=== PATIENT | male | born 1995 | race American Indian/Alaskan Native ===

== ENCOUNTER 2018-11-29 18:59 | Emergency (ER) | payer OTHER ==
--- NOTE | 2018-11-29 19:22 | Emergency Department Report ---
Blank Doc - Documentation Documentation: This is a 23-year-old male that presents with sore throat. This initial assessment diagnostic orders/clinical plan/treatment(s) is/are subject to change based on patient's health status, clinical progression and re- assessment by fellow clinical providers in the ED. Further treatment and workup at subsequent clinical providers discretion. Patient/guardians urged not to elope from ED s their condition may be serious if not clinically assessed and managed. Initial orders include: 1-Patient sent to [facility] for further evaluation and treatment 2- strep swab
[2018-11-29 19:26] VITALS: BP 149/96
[2018-11-30] MEDS ORDERED: BICILLIN L-A IM ONE (00:49)
--- NOTE | 2018-11-30 00:49 | Emergency Department Report ---
ED ENT HPI - General Chief complaint: Sore Throat Stated complaint: SORE THROAT Time Seen by Provider: 11/29/18 19:21 Source: patient Mode of arrival: Ambulatory Limitations: No Limitations - History of Present Illness Initial comments: 23-year-old -[place] male reports to the emergency room stating he has a sore throat for 2 weeks. Patient stated hurts to eat or swallow and states that he looks funny. Patient reports that he has white patches to the throat and voice is hoarse. Patient has not taken any pain medicines patient states that he doesn't think that's going to solve the problem. Patient questions could be an STD. MD complaint: sore throat -: week(s) (2) Severity scale (0 -10): 10 Quality: constant Consistency: constant Improves with: none Worsens with: swallowing, eating - Related Data Allergies Allergy/AdvReac Type Severity Reaction Status Date / Time metoclopramide [From Reglan] Allergy Unknown Verified 11/29/18 19:07 ED Dental HPI - General Chief complaint: Sore Throat Stated complaint: SORE THROAT Time Seen by Provider: 11/29/18 19:21 Source: patient Mode of arrival: Ambulatory Limitations: No Limitations - Related Data Allergies Allergy/AdvReac Type Severity Reaction Status Date / Time metoclopramide [From Reglan] Allergy Unknown Verified 11/29/18 19:07 ED Review of Systems ROS: Stated complaint: SORE THROAT Other details as noted in HPI Comment: All other systems reviewed and negative Constitutional: denies: chills, fever ENT: throat pain Gastrointestinal: denies: abdominal pain, nausea, diarrhea Neurological: denies: headache, weakness, paresthesias ED Past Medical Hx - Past Medical History Previous Medical History?: No - Surgical History Past Surgical History?: No - Social History Smoking Status: Current Every Day Smoker Substance Use Type: Alcohol ED Physical Exam - General Limitations: No Limitations General appearance: alert, in no apparent distress - Head Head exam: Present: atraumatic, normocephalic - Eye Eye exam: Present: EOMI - Expanded ENT Exam Expanded Throat exam: Positive: tonsillar erythema - Neck Neck exam: Present: full ROM. Absent: lymphadenopathy - Neurological Exam Neurological exam: Present: alert, oriented X3 - Psychiatric Psychiatric exam: Present: normal affect, normal mood ED Course Vital Signs 02/25/19 19:24 Temperature 98 F Pulse Rate 91 H Respiratory 18 Rate Blood Pressure 149/96 O2 Sat by Pulse 99 Oximetry ED Medical Decision Making - Medical Decision Making Patient has been evaluated by this provider in fast track. Patient is given a penicillin injection of 1.2 million units Patient can follow up with the primary care provider symptoms persist or gets worse. Also recommend patient to follow up at the health Department since he questions if this could be an STD. Critical care attestation.: If time is entered above; I have spent that time in minutes in the direct care of this critically ill patient, excluding procedure time. ED Disposition Clinical Impression: Pharyngitis Qualifiers: Pharyngitis/tonsillitis etiology: unspecified etiology Qualified Code(s): J02.9 - Acute pharyngitis, unspecified Disposition: DC- TO HOME OR SELFCARE Is pt being admited?: No Does the pt Need Aspirin: No Condition: Stable Instructions: Pharyngitis (ED) Additional Instructions: Please follow up at the health department to have STD screening. Increase her fluid intake. Referrals: EUN CASTRO MD [Primary Care Provider] - 3-5 Days Forms: Work/School Release Form(ED)
[2018-11-30] MEDS ORDERED: IBUPROFEN PO ONE ×2 (01:38→01:41)
== END 2018-11-30 01:40 | disposition home or self-care (01) ==
LOC: ED 18:59
DX: J02.9 Acute pharyngitis, unspecified (principal); F17.200 Nicotine dependence, unspecified, uncomplicated; Z88.8 Allergy status to other drugs, medicaments and biological substances
CPT/HCPCS: 87116; 87430; 96372; 99283; J0561

== ENCOUNTER 2021-04-28 10:39 | Emergency (ER) | payer SELFPAY ==
[2021-04-28] MEDS ORDERED: oxyCODONE /ACETAMINOPHEN 5-325MG TAB PO ONE (11:06)
[2021-04-28] MEDS ORDERED: KETOROLAC 10 MG TAB PO ONE (11:06)
--- NOTE | 2021-04-28 11:13 | Event Note ---
ED Screening Note Date of service: 04/28/21 Time: 11:12 ED Screening Note: Patient complains of fall onto left shoulder injury this morning Significant pain on exam This initial assessment/diagnostic orders/clinical plan/treatment(s) is/are subject to change based on patients health status, clinical progression and re- assessment by fellow clinical providers in the ED. Further treatment and workup at subsequent clinical providers discretion. Patient/guardian urged not to elope from the ED as their condition may be serious if not clinically assessed and managed. Initial orders include: Pain meds X-ray
--- NOTE | 2021-04-28 11:49 | XRay Report ---
Left shoulder 3 views INDICATION: Fall FINDINGS: No acute fracture dislocation. AC joint appears normal. Signer Name: Lionel Jackson MD Signed: 04/28/2021 11:44 AM Workstation Name: [id number]
[2021-04-28] MEDS ORDERED: KETOROLAC 60 MG/2 ML INJ IM ONE (14:04)
[2021-04-28] MEDS ORDERED: dexAMETHasone 4 MG/ML VIAL IM STA (14:15)
--- NOTE | 2021-04-28 14:15 | Emergency Department Report ---
ED General Adult HPI - General Chief complaint: Extremity Injury, Upper Stated complaint: LT SHOULD PAIN FELL Time Seen by Provider: 04/28/21 11:06 Source: patient Mode of arrival: Ambulatory Limitations: No Limitations - History of Present Illness Initial comments: 26-year-old -Citizen Of [place] male patient presents with complaints of left shoulder pain after fall injury this morning. He states while playing around with his brother, he fell directly onto the side of his shoulder. He rates pain as a 10/10 in severity and states he is unable to move it due to the pain. No prior history of shoulder dislocations per patient. He also denies any numbness/tingling in his arm or neck pain. -: Sudden Severity scale (0 -10): 10 Quality: aching, sharp, constant Consistency: constant - Related Data Previous Rx's Medication Instructions Recorded Last Taken Type Acetaminophen/Codeine [Tylenol 1 tab PO Q6H PRN #10 tab 04/28/21 Unknown Rx /Codeine # 3 tab] Naproxen 500 mg PO BID PRN #20 tablet 04/28/21 Unknown Rx methocarbamoL [Methocarbamol] 750 - 1,500 mg PO TID PRN #30 04/28/21 Unknown Rx tablet Allergies Allergy/AdvReac Type Severity Reaction Status Date / Time metoclopramide [From Reglan] Allergy Unknown Verified 04/28/21 11:04 ED Review of Systems ROS: Stated complaint: LT SHOULD PAIN FELL Other details as noted in HPI Respiratory: denies: shortness of breath Cardiovascular: denies: chest pain Musculoskeletal: joint swelling, arthralgia Neurological: denies: numbness, paresthesias ED Past Medical Hx - Past Medical History Previous Medical History?: No - Surgical History Past Surgical History?: No - Social History Smoking Status: Current Every Day Smoker Substance Use Type: Alcohol - Medications Home Medications: Home Medications Medication Instructions Recorded Confirmed Last Taken Type Acetaminophen/Codeine [Tylenol 1 tab PO Q6H PRN #10 tab 04/28/21 Unknown Rx /Codeine # 3 tab] Naproxen 500 mg PO BID PRN #20 tablet 04/28/21 Unknown Rx methocarbamoL [Methocarbamol] 750 - 1,500 mg PO TID PRN #30 04/28/21 Unknown Rx tablet ED Physical Exam - General Limitations: No Limitations General appearance: alert, in no apparent distress - Head Head exam: Present: atraumatic, normocephalic - Eye Eye exam: Present: normal appearance - Neck Neck exam: Present: normal inspection, full ROM - Respiratory Respiratory exam: Absent: respiratory distress - Cardiovascular Cardiovascular Exam: Present: regular rate - Expanded Upper Extremity Exam Left Shoulder Exam: Present: tenderness (Significant tenderness to palpation noted over the AC joint and humeral head), swelling (Mild swelling at the AC joint noted), tenderness over AC joint. Absent: full ROM, laceration, ecchymosis, erythema Upper Arm exam: Present: normal inspection Elbow exam: Present: normal inspection, full ROM Forearm Wrist exam: Present: normal inspection Hand Wrist exam: Present: normal inspection Vascular: Absent: vascular compromise - Neurological Exam Neurological exam: Present: alert, oriented X3 - Psychiatric Psychiatric exam: Present: normal affect, normal mood - Skin Skin exam: Present: warm, dry, intact, normal color. Absent: rash ED Course Vital Signs 04/28/21 04/28/21 11:06 15:02 Temperature 98.4 F 98.4 F Pulse Rate 96 H 77 Respiratory 20 16 Rate Blood Pressure 152/101 Blood Pressure 141/86 [Right] O2 Sat by Pulse 97 97 Oximetry ED Medical Decision Making - Radiology Data Radiology results: report reviewed Fluoro Time In Minutes: Left shoulder 3 views INDICATION: Fall FINDINGS: No acute fracture dislocation. AC joint appears normal. - Medical Decision Making 26-year-old -Citizen Of [place] male patient presents with complaints of left shoulder pain after fall injury this morning. He states while playing around with his brother, he fell directly onto the side of his shoulder. He rates pain as a 10/10 in severity and states he is unable to move it due to the pain. No prior history of shoulder dislocations per patient. He also denies any numbness/tingling in his arm or neck pain. X-rays negative for any bony abnormalities or dislocation. Suspect possible AC joint injury/mild separation. Patient placed in shoulder sling. Pain controlled. Recommend follow-up with orthopedics within 3 days. He is well- appearing and his vitals are within normal limits. Patient stable for discharge home. Strict return precautions were discussed in detail with patient who verbalized understanding. Critical care attestation.: If time is entered above; I have spent that time in minutes in the direct care of this critically ill patient, excluding procedure time. ED Disposition Clinical Impression: Left shoulder pain Disposition: DC- TO HOME OR SELFCARE Is pt being admited?: No Condition: Stable Instructions: Shoulder Sprain, Acromioclavicular Separation Prescriptions: methocarbamoL [Methocarbamol] 750 - 1,500 mg PO TID PRN #30 tablet PRN Reason: muscle spasm/tightness Naproxen 500 mg PO BID PRN #20 tablet PRN Reason: pain Acetaminophen/Codeine [Tylenol /Codeine # 3 tab] 1 tab PO Q6H PRN #10 tab PRN Reason: Pain , Severe (7-10) Referrals: [facility] [Provider Group] - 3-5 Days Forms: Work/School Release Form(ED)
[2021-04-28 15:02] VITALS: BP 141/86
== END 2021-04-28 15:03 | disposition home or self-care (01) ==
LOC: ED 10:39
DX: M25.512 Pain in left shoulder (principal); F17.200 Nicotine dependence, unspecified, uncomplicated
CPT/HCPCS: 73030; 96372; 99283; J1100; J1885

== ENCOUNTER 2021-06-20 01:08 | Emergency (ER) | payer OTHER ==
[2021-06-20 01:23] VITALS: BP 147/99
--- NOTE | 2021-06-20 01:32 | Emergency Department Report ---
ED General Adult HPI - General Chief complaint: Upper Respiratory Infection Stated complaint: FLU LIKE SYMPTOMS Time Seen by Provider: 06/20/21 01:24 Source: patient Mode of arrival: Ambulatory Limitations: No Limitations - History of Present Illness Initial comments: 26-year-old immunocompetent male patient presents to the emergency department with complaints of fever, cough, and myalgias starting 2 days ago. No known sick contacts. No current steroid or antibiotic use. No recent travel. Patient tested negative for COVID-19 within the last 24 hours. Patient has not received his influenza vaccine this season. Patient has no known history of pre-existing cardiopulmonary disease. Denies headache, neck stiffness, rash, shortness of breath, wheezing, vomiting, diarrhea, abdominal pain. Denies all other complaints at this time. - Related Data Previous Rx's Medication Instructions Recorded Last Taken Type Acetaminophen/Codeine [Tylenol 1 tab PO Q6H PRN #10 tab 04/28/21 Unknown Rx /Codeine # 3 tab] Naproxen 500 mg PO BID PRN #20 tablet 04/28/21 Unknown Rx methocarbamoL [Methocarbamol] 750 - 1,500 mg PO TID PRN #30 04/28/21 Unknown Rx tablet Benzonatate [Tessalon Perles] 200 mg PO Q8HR #20 capsule 06/20/21 Unknown Rx Allergies Allergy/AdvReac Type Severity Reaction Status Date / Time metoclopramide [From Reglan] Allergy Unknown Verified 04/28/21 11:04 ED Review of Systems ROS: Stated complaint: FLU LIKE SYMPTOMS Other details as noted in HPI Other: GENERAL: Positive for fever and chills. ENT: Negative for ear pain, difficulty hearing, sore throat, nasal congestion, epistaxis. CARDIOVASCULAR: Negative for chest pain, palpitations, lower extremity swelling. PULMONARY: Positive for cough. GASTROINTESTINAL: Negative for abdominal pain, nausea, vomiting, diarrhea, constipation. MUSCULOSKELETAL: Positive for myalgias. NEUROLOGICAL: Negative for headache, seizure, syncope, paresthesias, weakness. INTEGUMENTARY: Negative for erythema, rash, diaphoresis, laceration, ecchymosis. HEMATOLOGICAL: Negative for hemoptysis, hematemesis, hematochezia, hematuria. PSYCHIATRIC: Negative for hallucinations, suicidal ideation, homicidal ideation, anxiety, depression. ED Past Medical Hx - Past Medical History Previous Medical History?: No - Surgical History Past Surgical History?: No - Social History Smoking Status: Current Every Day Smoker Substance Use Type: Alcohol - Medications Home Medications: Home Medications Medication Instructions Recorded Confirmed Last Taken Type Acetaminophen/Codeine [Tylenol 1 tab PO Q6H PRN #10 tab 04/28/21 Unknown Rx /Codeine # 3 tab] Naproxen 500 mg PO BID PRN #20 tablet 04/28/21 Unknown Rx methocarbamoL [Methocarbamol] 750 - 1,500 mg PO TID PRN #30 04/28/21 Unknown Rx tablet Benzonatate [Tessalon Perles] 200 mg PO Q8HR #20 capsule 06/20/21 Unknown Rx ED Physical Exam - General Limitations: No Limitations - Other Other exam information: General: Awake and alert. No acute distress. Head: Atraumatic, normocephalic. Eyes: EOMI. Pupils are equal and round. Normal sclera and conjunctiva. ENT: Oral mucosa is moist. Normal pharyngeal exam. Neck: Supple. No lymphadenopathy. Pulmonary: Actively coughing on exam. No respiratory distress. Clear to auscultation bilaterally. Cardiac: Regular rate and rhythm. Pulses are palpable and equal bilaterally. No lower extremity cyanosis or edema. Skin: Warm and dry. No rashes. Abdomen: Soft, non-tender, non-protuberant. No guarding, rigidity, or rebound. Bowel sounds are normal. No organomegaly or masses noted. Back: Normal alignment. No CVA tenderness. Extremities: Symmetrical. Full range of motion intact. Neurological: Alert and oriented, appropriately interactive, no focal deficits. Psych: Cooperative. Appropriate mood and affect. Speech is evenly metered. Thoughts are logically construed. ED Course Vital Signs 06/20/21 01:22 Temperature 98.8 F Pulse Rate 87 Respiratory 14 Rate Blood Pressure 147/99 [Left] O2 Sat by Pulse 95 Oximetry ED Medical Decision Making - Medical Decision Making Differential diagnosis including but not limited to: pneumonia, influenza, pertussis, pleural effusion, viral upper respiratory infection, pneumothorax On reevaluation, patient remains stable. No hypoxia, no respiratory distress. Chest x-ray is negative. COVID-19 testing is currently unavailable at this facility. Patient does not meet criteria for antiviral therapy per CDC guidelines and therefore rapid influenza testing is not clinically indicated. Patient will be discharged home with appropriate symptomatic treatment and referral to primary care provider for close outpatient follow-up. Patient expressed understanding and is agreeable to plan of care. Disease transmission precautions discussed. Strict return precautions provided. History, exam, diagnostic testing, and current condition do not suggest worrisome pathology to warrant further testing, continued ED treatment, ad mission, or surgical evaluation at this point. Given the low probability of a significant medical illness, it would be more likely to result in harm than benefit to perform further testing at this stage. Discussed findings, presumptive diagnosis, need for follow-up and specific signs/symptoms that should prompt immediate return to the emergency department. Instructions were explained in detail to the patient in addition to giving written discharge information. Patient expressed understanding and was given the opportunity to ask questions, all of which were satisfactorily answered prior to discharge home. Critical care attestation.: If time is entered above; I have spent that time in minutes in the direct care of this critically ill patient, excluding procedure time. ED Disposition Clinical Impression: Viral syndrome Disposition: 01 HOME / SELF CARE / HOMELESS Is pt being admited?: No Does the pt Need Aspirin: No Condition: Stable Instructions: Viral Respiratory Infection, [id number] Additional Instructions: Chest x-ray is normal. There is no evidence of bacterial pneumonia. Your symptoms are most likely attributable to a viral infection. Take Tylenol every 4 hours and Motrin every 8 hours as needed for pain/fever. Take Tessalon as directed for cough. Rest. Drink plenty of fluids. Honey is an excellent natural cough suppressant. Wash hands frequently to prevent disease transmission. Do not share food or drinks with others. Follow-up with primary care provider this week. Call tomorrow to schedule appointment. See referral information below. Return to the emergency department immediately for new or worsening symptoms. Specifically, return to the emergency department immediately for dehydration, shortness of breath, rash, worsening pain, or any other concerns. Prescriptions: Benzonatate [Tessalon Perles] 200 mg PO Q8HR #20 capsule Referrals: ALL WILKINSON MD [Staff Physician] - 3-5 Days [facility] [Provider Group] - 3-5 Days Forms: Work/School Release Form(ED) Time of Disposition: 02:15
--- NOTE | 2021-06-20 01:59 | XRay Report ---
CHEST 2 VIEWS INDICATION / CLINICAL INFORMATION: fever/cough. COMPARISON: None available. FINDINGS: SUPPORT DEVICES: None. HEART / MEDIASTINUM: No significant abnormality. LUNGS / PLEURA: No significant pulmonary or pleural abnormality. No pneumothorax. ADDITIONAL FINDINGS: No significant additional findings. IMPRESSION: 1. No acute findings. Signer Name: Lionel Jackson MD Signed: 06/20/2021 1:55 AM Workstation Name: [id number]
== END 2021-06-20 02:45 | disposition home or self-care (01) ==
LOC: ED 01:08
DX: B34.9 Viral infection, unspecified (principal); F17.200 Nicotine dependence, unspecified, uncomplicated
CPT/HCPCS: 71046; 99283